=== PATIENT | female | born 1955 | race Caucasian/White ===

== ENCOUNTER 2020-12-31 23:12 | Emergency (ER) | payer OTHER ==
[~2020-12-31 23:12] MED LIST: CYCLOBENZAPRINE10 MG PO
[2021-01-01 01:48] LABS: BILIRUBIN NEGATIVE (NEGATIVE); BLOOD TRACE-INTACT Ery/uL (NEGATIVE); CLARITY CLEAR (CLEAR); COLOR YELLOW (YELLOW); GLUCOSE (U) NORMAL (NORMAL); LEUKOCYTES 1+ Leu/uL (NEGATIVE); NITRITE NEGATIVE (NEGATIVE); PROTEIN NEGATIVE (NEGATIVE); UROBILINOGEN 0.2 mg/dL (0.2-1.0); pH 6.5 (5.0-9.0)
[2021-01-01 01:59] LABS: BACTERIA TRACE; SQUAMOUS EPITHELIAL CELLS RARE; URINARY RBC RARE; URINARY WBC RARE
[2021-01-01 02:16] LABS: BASOPHIL 0.4 % (0-2); EOSINOPHIL 2.6 % (0-7); HCT 35.9 % (37.0-47.0); HGB 11.9 g/dl (12.5-16.0); LYMPHOCYTE 17.5 % (15-48); MCHC 33.1 g/dL (32.0-36.0); MCV 87.3 fL (78.0-100.0); MONOCYTE 8.1 % (0-12); MPV 9.5 fL (6.0-9.5); NEUTROPHIL 71.1 % (41-80); NRBC 0; PLT 212 K/uL (150-400); RBC 4.11 M/uL (4.20-5.40); RDW 12.8 % (11.5-14.0)
[2021-01-01 02:30] LABS: LACTIC ACID 0.5 mmol/L (0.4-1.9)
[2021-01-01 02:36] LABS: ALBUMIN 3.7 g/dL (3.4-5.0); ALKALINE PHOSHATASE 94 U/L (46-116); ALT 28 U/L (14-59); AST 18 U/L (15-37); BILIRUBIN - TOTAL 0.4 mg/dL (0.2-1.0); BUN 19 mg/dL (7-18); BUN/CREAT RATIO (CALC) 18.6 RATIO; C-REACTIVE PROTEIN < 0.20 mg/dL (<=0.90); CHLORIDE 93 mmol/L (98-107); CO2 (BICARBONATE) 30 mmol/L (21-32); CREATININE 1.02 mg/dL (0.51-0.95); GLOBULIN (CALCULATION) 4.1 g/dL; GLUCOSE 108 mg/dL (74-106); POTASSIUM 3.9 mmol/L (3.5-5.1); TOTAL PROTEIN 7.8 g/dL (6.4-8.2)
== END 2021-01-01 03:40 | disposition home or self-care (01) ==
LOC: FER 23:12
PROVIDERS: Emergency Medicine Emergency Medical Services
DX: K59.00 Constipation, unspecified (principal); R25.2 Cramp and spasm; I12.9 Hypertensive chronic kidney disease with stage 1 through stage 4 chronic kidney disease, or unspecified chronic kidney disease; N18.30 Chronic kidney disease, stage 3 unspecified; Z86.73 Personal history of transient ischemic attack (TIA), and cerebral infarction without residual deficits; Z79.01 Long term (current) use of anticoagulants; Z88.5 Allergy status to narcotic agent; Z88.8 Allergy status to other drugs, medicaments and biological substances; Z79.899 Other long term (current) drug therapy; Z91.048 Other nonmedicinal substance allergy status
CPT/HCPCS: 36415; 74022; 80053; 81001; 83605; 83735; 84100; 84145; 84484; 85025; 85379; 86140; 93005

== ENCOUNTER 2021-06-15 21:14 | Emergency (ER) | payer OTHER ==
[2021-06-15 22:57] LABS: BASOPHIL 0.8 % (0-2); EOSINOPHIL 2.5 % (0-7); HCT 38.3 % (37.0-47.0); HGB 12.5 g/dl (12.5-16.0); LYMPHOCYTE 22.3 % (15-48); MCH 28.8 pg (25.0-31.0); MCHC 32.6 g/dL (32.0-36.0); MCV 88.2 fL (78.0-100.0); MONOCYTE 6.6 % (0-12); NEUTROPHIL 67.5 % (41-80); NRBC 0; PLT 260 K/uL (150-400); RBC 4.34 M/uL (4.20-5.40); RDW 13.2 % (11.5-14.0); WBC 7.9 K/uL (4.0-10.5)
[2021-06-15 23:11] LABS: ALBUMIN 3.7 g/dL (3.4-5.0); BILIRUBIN - TOTAL 0.2 mg/dL (0.2-1.0); CREATININE 1.05 mg/dL (0.51-0.95); GLOBULIN (CALCULATION) 4.4 g/dL; POTASSIUM 3.7 mmol/L (3.5-5.1); TOTAL PROTEIN 8.1 g/dL (6.4-8.2)
[2021-06-15 23:51] LABS: CORONAVIRUS 2019 SARS-COV-2 NEGATIVE (NEGATIVE); INFLUENZA A NAA NEGATIVE (NEGATIVE)
[2021-06-16 01:25] LABS: INR 0.91 (0.9-1.2); PROTHROMBIN TIME 11.7 SECONDS (11.8-13.4)
[2021-06-16 03:22] LABS: ALBUMIN 3.2 g/dL (3.4-5.0); BILIRUBIN - TOTAL 0.4 mg/dL (0.2-1.0); BUN/CREAT RATIO (CALC) 20.6 RATIO; CREATININE 0.97 mg/dL (0.51-0.95); GLOBULIN (CALCULATION) 4.4 g/dL; POTASSIUM 3.9 mmol/L (3.5-5.1); TOTAL PROTEIN 7.6 g/dL (6.4-8.2)
[2021-06-16 03:28] LABS: BILIRUBIN NEGATIVE (NEGATIVE); BLOOD 1+ Ery/uL (NEGATIVE); CLARITY CLEAR (CLEAR); COLOR YELLOW (YELLOW); GLUCOSE (U) TRACE mg/dL (NORMAL); LEUKOCYTES NEGATIVE Leu/uL (NEGATIVE); NITRITE NEGATIVE (NEGATIVE); PROTEIN 2+ mg/dL (NEGATIVE); SPECIFIC GRAVITY 1.025 (1.001-1.030); UROBILINOGEN 0.2 mg/dL (0.2-1.0)
[2021-06-16 03:53] LABS: AMORPHOUS URATES CRYSTALS MODERATE; BACTERIA 3+
[2021-06-16 03:54] LABS: GRANULAR CASTS MODERATE
[2021-06-16 04:17] LABS: BASOPHIL 0.2 % (0-2); EOSINOPHIL 0.1 % (0-7); HCT 37.2 % (37.0-47.0); HGB 12.1 g/dl (12.5-16.0); LYMPHOCYTE 5.4 % (15-48); MCH 28.8 pg (25.0-31.0); MCHC 32.5 g/dL (32.0-36.0); MCV 88.6 fL (78.0-100.0); MONOCYTE 4.7 % (0-12); MPV 9.5 fL (6.0-9.5); NEUTROPHIL 89.1 % (41-80); NRBC 0; PLT 244 K/uL (150-400); RDW 13.2 % (11.5-14.0)
[2021-06-16 04:23] LABS: WBC 17.3 K/uL (4.0-10.5)
[2021-06-16 04:41] LABS: LACTIC ACID 2.7 mmol/L (0.4-1.9)
== END 2021-06-16 09:03 | disposition other institution (70) ==
LOC: FER 21:14
PROVIDERS: Internal Medicine
DX: J18.9 Pneumonia, unspecified organism (principal); J96.01 Acute respiratory failure with hypoxia; I46.9 Cardiac arrest, cause unspecified; G43.909 Migraine, unspecified, not intractable, without status migrainosus; I10 Essential (primary) hypertension; Z88.5 Allergy status to narcotic agent; Z88.8 Allergy status to other drugs, medicaments and biological substances; Z20.822 Contact with and (suspected) exposure to COVID-19
CPT/HCPCS: 36415; 36600; 70450; 71045; 71275; 80053; 81001; 82803; 83605; 83690; 83880; 84145; 84484; 85025; 85610; 85730; 87040; 87088; 93005; 96365; 96366; 96368; 96372; 96375; J1170; J2060; J2704; J3010; J3030; J7030; J7120; Q9967; U0002